=== PATIENT | male | born 2005 | race Hispanic/Latino ===

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

== ENCOUNTER 2023-09-22 11:39 | Emergency (ER) | payer SELFPAY ==
[~2023-09-22] VITALS: Ht 177.8 cm; Wt 120.0 kg
[~2023-09-22 11:39] MED LIST: CEPHALEXIN500 MG PO
[2023-09-22] MEDS ORDERED: SODIUM CHLORIDE 0.9% 1,000 ML IV ONE (12:05)
[2023-09-22] MEDS ORDERED: DiphenhydrAMINE HCL 50 MG/ML SDV IV ONE (12:05)
[2023-09-22] MEDS ORDERED: KETOROLAC TROMETHAMINE 30 MG/ML SDV IV ONE (12:05)
[2023-09-22] MEDS ORDERED: METOCLOPRAMIDE HCL 10 MG/2 ML SDV IV ONE (12:05)
[2023-09-22 12:18] LABS: BASO% 0.5 % (0-3); EOS% 17.1 % (0-8); HEMATOCRIT 43.5 % (39.0-50.0); HEMOGLOBIN 14.2 g/dl (14.0-18.0); IMMATURE GRANULOCYTES 0.2 % (0.0-5.0); LYMPH% 20.5 % (15-41); MEAN CELL VOLUME 86.5 fL CALC (80.0-100.0); MEAN CORPUSCULAR HGB 28.2 pG CALC (26.0-32.0); MEAN CORPUSCULAR HGB CONC 32.6 g/dL CAL (32.0-36.0); NEUT# 5.78 thou/uL (1.82-7.42); NEUT% 55.7 % (42-76); RED BLOOD COUNT 5.03 mill/uL (4.70-6.10)
[2023-09-22 12:28] LABS: ALBUMIN 4.7 g/dL (3.2-5.0); BILIRUBIN, TOTAL 0.4 mg/dL (0.2-1.3); CREATININE 1.2 mg/dL (0.7-1.3); POTASSIUM 4.3 mmol/l (3.5-5.1); TOTAL PROTEIN 8.1 g/dL (6.3-8.2)
[2023-09-22] MEDS ORDERED: DEXAMETHASONE SOD. PHOSPHATE 10 MG/ML VIAL IV ONE (13:35)
[2023-09-22 13:36] VITALS: BP 110/54
== END 2023-09-22 14:01 | disposition home or self-care (01) | DRG 103 ==
LOC: ED 11:39
PROVIDERS: Family Medicine
DX: R51.9 Headache, unspecified (principal)